=== PATIENT | female | born 1990 | race Caucasian/White ===

== ENCOUNTER 2017-02-17 20:00 | Inpatient (IN) ==
[2017-02-17] MEDS ORDERED: Famotidine 20 MG/2 ML VIAL IVP PRN (20:24)
[2017-02-17] MEDS ORDERED: Ondansetron 4 MG/2 ML VIAL IVP PRN (20:24)
[2017-02-17] MEDS ORDERED: Naloxone 0.4 MG/ML INJ IVP PRN (20:24)
[2017-02-17] MEDS ORDERED: Penicillin G Potassium 5,000,000 UNIT in D5% in Water (Mini-Bag+) 100 ML IVPB ONE (20:26)
[2017-02-17] MEDS ORDERED: Ringers Solution, Lactated 1,000 ML IVC SCH (20:30)
[2017-02-17] MEDS ORDERED: miSOPROStol 100 MCG TABLET PO ONE (20:40)
[2017-02-17 20:52] LABS: Basophils % 0.2 %; Eosinophils # 0.1 K/mcL (0.0-0.6); Eosinophils % 0.5 %; Hematocrit 36.7 % (35.3-44.9); Hemoglobin 12.5 g/dL (11.5-15.4); Immature Granulocytes % 1.3 % (0-4); Lymphocytes # 3.2 K/mcL (0.6-4.6); Lymphocytes % 21.3 %; Mean Corpuscular HGB Conc 34.1 g/dL (31.6-35.5); Mean Corpuscular Volume 93.9 fL (83.0-100.0); Mean Platelet Volume 10.9 fL (9.4-12.4); Monocytes # 0.8 K/mcL (0.0-1.3); Monocytes % 5.5 %; Neutrophils # 10.8 K/mcL (1.6-8.9); Platelet Count 220 K/mcL (140-400); Red Blood Count 3.91 M/mcL (3.82-4.97); Red Cell Distribution Width 12.8 % (11.5-14.5); Segmented Neutrophils % 71.2 %
--- NOTE | 2017-02-17 21:27 | OB/GYN History & Physical ---
Date of Encounter: 02/17/17 Time of Encounter: 21:22 Assessment and Plan (1) Postmaturity , 40-42 weeks gestation Current visit: Yes Status: Acute Induction of labor (2) Diet controlled gestational diabetes mellitus (GDM) in third trimester Current visit: Yes Status: Acute Will repeat 2 hour gtt 6 weeks History of Present Illness Chief complaint: 40w2d IOL for postdates, grade 3 placenta HPI: Ms. Haines is a 26 year old female @ 40w2d with EDC of 02/15/2017 presents to labor and delivery for IOL. Patient was seen in office today and had an ultrasound for postdates. Ultrasound reports grade 3 placenta, EFW 3884 Grams, ADELE 23.4 with 10.9cm pocket seen. Dr. Almeida reviewed ultrasound and suggested IOL. Patient had a gomes score of 9. Patient reports +FM, occasional contractions, denies LOF. Blood type: A+, Rubella: Immune, Hep B: nonreactive, RPR: nonreactive, Group B Strep: Positive. Patient is diet controlled GDM. Past Med Surg Social Fam HX - Past Medical History Source: patient Medical history: migraine, other (L4-L5 herniation) Psychiatric history: anxiety, ADHD, depression - Past Surgical History Surgical History: other (tonsils) - Social History Smoking Status: Current every day smoker Packs per day: 10 Smokeless Tobacco Status: No Alcohol use: none Drug use: none Current living situation: Home - Independent Activity Level: Independent ambulation Recent Out of Country Travel Within the Last 8 Weeks: No Exposure or Possible Exposure to Illness During Travel: No - Family History Father Adopted: No Family Member Ethnicity: Non- Living Status: Still Living Hx Family Cardiac Disorders: Yes Hx Family Respiratory Disorders: No Hx Family Cancer: No Hx Family GI Disorders: No Hx Family Genitourinary Disorders: No Hx Family Endocrine Disorder: No Hx Family Musculoskeletal Disorders: No Hx Family Neuromuscular Disorders: No Hx Family Neurologic Disorders: No Hx Family HEENT Disorders: No Hx Family Autoimmune Disorders: No Hx Family Reproductive Disorders: No Hx Family Psychosocial Disorders: No Hx Family Medical Disorders: No Obstetrical History - Pregnancies : 1 Para: 0 Term: 0 : 0 Ab's: 0 Livin Medications and Allergies Acetaminophen [Tylenol] 325 mg PO DAILY 11/17/16 [History] Pnv95/Ferrous Fumarate/FA [ Vitamin Tablet] 1 each PO DAILY 11/17/16 [ History] Calcium Carb/Vitamin D3/Vit K1 [Calcium + D Soft Chewable Tab] 1 each PO DAILY 02/17/17 [History] Allergies sulfamethoxazole [From Bactrim] Adverse Reaction (Verified 11/17/16 08:34) Anaphylaxis trimethoprim [From Bactrim] Adverse Reaction (Verified 11/17/16 08:34) Anaphylaxis Review of System OB - Constitutional Constitutional ROS IM: no chills, no fever(s), no headache(s) - Cardiovascular Cardiovascular: pedal edema, no chest pain, no lightheadedness, no palpitations , no rapid heart rate, no slow heart rate - Respiratory Respiratory: no dyspnea - Gastrointestinal Gastrointestinal: no constipation, no cramping, no diarrhea, no heartburn, no nausea, no vomiting - Genitourinary Genitourinary: no abnormal vaginal bleeding, no dysuria, no flank pain, no urinary frequency, no urinary urgency, no vaginal discharge, no vaginal odor, no vaginal pruritis Exam - Constitutional Constitutional: well developed, well nourished, no acute distress, average body habitus - HEENT HEENT: Normocephaly, Mucus Membranes Moist - Neck Neck exam: full ROM, supple - Lungs Respiratory exam: CTAB - Cardiovascular Cardiovascular exam: RRR, +S1, +S2 - Abdomen Abdomen: Present: bowel sounds normal, gravid, non tender - Extremities Extremities exam: full ROM, normal capillary refill, pedal edema (1+) Deep Tendon Reflex Grade: 2+ Normal - Cervix Dilation: 2 Effacement: 70 Station: -1 - Uterus Uterus exam: Present: normal size, normal contour - Anus/Rectum Anus/Rectum: Present: normal perianal skin - Comments Comments: FHR 135 bpm moderate variability +15x15 accels no decels noted. Cat. 1 tracing. Results Result Diagrams: 02/17/17 20:35 02/17/17 20:35 Abnormal lab results WBC 15.2 K/mcL (4.3-11.1) H 02/17/17 20:35 Neutrophils # 10.8 K/mcL (1.6-8.9) H 02/17/17 20:35 Glucose 130 mg/dL (70-99) H 02/17/17 20:35 All other labs normal. - VTE Reasons for not Prescribing Prophylaxis: Treatment not Indicated - Low risk for VTE
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
[2017-02-17] MEDS ORDERED: Cholecalciferol (D-3) 1,000 UNIT TABLET PO ONE (23:43)
[2017-02-18] MEDS ORDERED: Oxytocin 20 units/ LR 1000 mL 20 UNIT/1,000 ML BAG IVC SCH ×2 (01:30→15:31)
[2017-02-18] MEDS: Penicillin G Potassium 2,500,000 UNIT in D5% in Water 100 ML IVPB SCH ×3 (01:30→10:27)
[2017-02-18] MEDS: Acetaminophen 325 MG TABLET PO PRN ×2 (03:12→09:47)
--- NOTE | 2017-02-18 04:56 | OB Labor Progress Note ---
Date of Encounter: 02/18/17 Time of Encounter: 04:53 Labor Progress Note - Subjective Subjective: Patient sitting up in bed breathing through contractions. Patient reports the pain is stronger and the contraction are getting closer together. Pitocin is currently off. - Cervix Cervix: 5.5/100/0 - Heart Tones Heart Tones: 125 bpm moderate variability +15x15 accels no decels noted. Cat. 1 tracing - [place]: 2-3 min - Interventions Interventions: SVE, IUPC placed without difficulty. Patient tolerated well. - Plan Plan: Continue labor management. Patient would like Nubain at this time for pain management.
[2017-02-18] MEDS: *HR* Nalbuphine 20 MG/ML AMPUL IVP PRN ×2 (05:02→08:23)
--- NOTE | 2017-02-18 08:20 | OB Labor Progress Note ---
Date of Encounter: 02/18/17 Time of Encounter: 08:17 Labor Progress Note - Subjective Subjective: Patient breathing through contractions. Pitocin at 2 milliunits. Patient requesting pain medication at this time. - Cervix Cervix: 7/100/0 - Heart Tones Heart Tones: 125 bpm moderate variability +15x15 accels no decels noted Cat. 1 tracing. - [place]: 2-2.5 min apart - Interventions Interventions: SVE, patient repositioned. - Plan Plan: Continue labor management.
[2017-02-18] MEDS ORDERED: Lidocaine 1% 20 ML MDV ONE (10:40)
--- NOTE | 2017-02-18 10:44 | OB Labor Progress Note ---
Date of Encounter: 02/18/17 Time of Encounter: 10:42 Labor Progress Note - Subjective Subjective: Patient sitting up breathing through contractions. Patient reports pressure is getting more intense. Pitocin at 3 milliunits. - Cervix Cervix: 9.5/100/+1 - Heart Tones Heart Tones: 120 bpm moderate variability +15x15 accels no decels noted. Cat 1 tracing. - [place]: 3-4 min apart - Interventions Interventions: SVE, repositioned. Pitocin increased by 1 milliunit. - Plan Plan: Continue labor management.
[2017-02-18] MEDS ORDERED: *HR* Meperidine 25 MG/ML SYRINGE IVP PRN (12:00)
--- NOTE | 2017-02-18 12:58 | OB/GYN Procedure Note ---
Delivery - Delivery Date: 02/18/17 Provider: Claudia Kasper Intrapartum events: none Delivery induction: AROM, misoprostol Delivery monitor: external FHT, external uterine, internal uterine Anesthesia: local Estimated Blood Loss: 400 - (s) A Delivery Date: 02/18/17 Delivery Time: 11:49 Presentation: vertex Position: FACUNDO Route of delivery: Gender: Male Viability: Viable Pounds: 8 Ounces: 12 Weight Gram: 3980 kg at 1 minute: 8 at 5 mins: 9 Shoulder Dystocia: not encountered Placenta: spontaneous, uterine exploration Cord: nuchal cord (X1 tight but reduced for delivery), 3 umbilical vessels, nuchal reduced - Repair Episiotomy: none Laceration Description: Periurethral (bilateral repaired with 4-0 vicryl) - Complications Delivery complications: none - Disposition Mom disposition: stable in LDR disposition: stable in LDR - Comments Comments: Called to LDR, patient was complete and felt pressure. Perineum was prepped patient was placed in foot plates and began pushing with contractions. Spontaneous delivery of male infant FACUNDO. Tight nuchal was able to be reduced prior to delivery. Infant was placed on maternal abdomen. Bilateral periuretheral lacerations were repaired with 4-0 vicryl. 1% lidocaine was used prior to repair to anaesthetize area. Cord was clamped and cut after pulsation ceased. Infant was then placed skin to skin. After 57 minutes the placenta delivered spontaneously and intact. Pericare was provided. Placenta sent to pathology for post dates. Both mother and infant are stable in LDR.
[2017-02-18] MEDS ORDERED: *HR* HYDROcodone/Acet 5/325 mg TABLET PO PRN (15:31)
[2017-02-18] MEDS ORDERED: Lanolin 7 G OINT...G. TP PRN (15:31)
[2017-02-18] MEDS ORDERED: Benzocaine/Menthol 56 GM AEROSOL SPRAY TP PRN (15:31)
[2017-02-18] MEDS ORDERED: Acetaminophen 325 MG TABLET PO PRN (15:31)
[2017-02-18] MEDS ORDERED: miSOPROStol 100 MCG TABLET PO ONE (15:37)
[2017-02-18] MEDS: Ibuprofen 600 MG TABLET PO PRN (16:06)
[2017-02-18] MEDS ORDERED: Cholecalciferol (D-3) 1,000 UNIT TABLET PO ONE (23:23)
[2017-02-19] MEDS: Ibuprofen 600 MG TABLET PO PRN ×2 (03:33→13:32)
--- NOTE | 2017-02-19 07:57 | Discharge Summary ---
Date of Encounter: 02/19/17 Time of Encounter: 07:55 - Discharge Diagnosis (1) Postmaturity , 40-42 weeks gestation Priority: Secondary Status: Acute (2) Diet controlled gestational diabetes mellitus (GDM) in third trimester Priority: Secondary Status: Acute Comments: 2 hour gtt 6 weeks (3) Vaginal delivery Priority: Primary Status: Acute Comments: Continue routine care discharge home today follow up with Claudia Kasper CNM in 4-6 weeks (4) Breast feeding status of mother Priority: Secondary Status: Acute Comments: support prn - Discharge Medications Prescriptions: Ibuprofen [Motrin] 600 mg PO Q6HR PRN #60 tablet PRN Reason: Cramping Breast Pump [BREAST PUMP] 1 each .ROUTE AD #1 each Home Medications: Pnv95/Ferrous Fumarate/FA [ Vitamin Tablet] 1 each PO DAILY 11/17/16 [ History] Benzocaine/Menthol [place] [Dermoplast [place]] 1 appl TP QID PRN #0 aerosol [Rx] Breast Pump [BREAST PUMP] 1 each .ROUTE AD #1 each 02/19/17 [Rx] Ibuprofen [Motrin] 600 mg PO Q6HR PRN #60 tablet 02/19/17 [Rx] Vit/FA 1 each PO DAILY tablet 02/19/17 [Rx] Allergies/Adverse Reactions: Allergies sulfamethoxazole [From Bactrim] Adverse Reaction (Verified 11/17/16 08:34) Anaphylaxis trimethoprim [From Bactrim] Adverse Reaction (Verified 11/17/16 08:34) Anaphylaxis Data Procedures and tests throughout hospitalization: Laboratory Tests 02/17/17 02/17/17 20:35 20:35 WBC 15.2 H RBC 3.91 Hgb 12.5 Hct 36.7 MCV 93.9 MCH 32.0 MCHC 34.1 RDW 12.8 Plt Count 220 MPV 10.9 Immature Gran % 1.3 Seg Neutrophils % 71.2 Lymphocytes % 21.3 Monocytes % 5.5 Eosinophils % 0.5 Basophils % 0.2 Neutrophils # 10.8 H Lymphocytes # 3.2 Monocytes # 0.8 Eosinophils # 0.1 Basophils # 0.0 Glucose 130 H Date of admission: 02/17/17 20:12 Primary care physician: PCP NO Consults: 02/18/17 15:31 Consult to Nutrition Representative [CONS] Routine Comment: Vaginal delivery, consult needed Discharging clinician: Claudia Kasper Anticipated date of discharge: 02/19/17 - Patient Status Disposition: Home, Self-Care Condition: Good Overall status at discharge: patient is back to baseline - Discharge Instructions Follow Up With: NO,PCP [Primary Care Provider] - Claudia Kasper CNM [Non-Partnered Physician] - - Diet and Activity Activity: increase activity as tolerated Diet: regular diet Hospital Course Reason for admission: induction of labor (for postdates, polyhydramnios and grade 3 placenta) Delivery: Episiotomy: none Laceration: other (bilateral periurethral) complications: none Discharge diagnosis: IUP at term delivered [place] baby: male (breast feeding) Time Attestation: Total time spent providing and/or coordinating discharge services: Time Spent: Less than 30 minutes Exam - Constitutional Vitals: Temp Pulse Resp BP Pulse Ox 97.5 F L 96 14 99/65 97 02/19/17 03:25 02/19/17 03:25 02/19/17 03:25 02/19/17 03:25 02/19/17 03:25 General appearance IM: A&O X 3, pleasant, answers questions appropriately - Respiratory Respiratory exam: Present: CTAB - Cardiovascular Cardiovascular exam IM: Present: RRR, +S1, +S2 - GI/Abdominal GI/Abdominal exam IM: normal bowel sounds - Uterine Tone: Firm Uterus Position: 1 Finger Below Umbilicus, Midline - Extremities Exam Extremities exam IM: Present: full ROM, normal capillary refill, normal inspection - Neurological Exam Neurological exam: alert, oriented X3, reflexes normal
[2017-02-19 08:19] VITALS: BP 99/62
[2017-02-19] MEDS ORDERED: Prenatal Vit/FA 1 EACH TABLET PO SCH (09:00)
== END 2017-02-19 15:10 | disposition home or self-care (01) | DRG 560 ==
LOC: 1NENULAB 20:12 → 1NENUOBS 02-18 15:41
PROVIDERS: ADMIT Advanced Practice Midwife; ATTEND Advanced Practice Midwife